=== PATIENT | female | born 1935 | race Caucasian/White ===

== ENCOUNTER 2017-02-23 18:44 | Inpatient (IN) | payer MEDICARE, OTHER ==
[~2017-02-23] VITALS: Ht 170.2 cm; Wt 80.5 kg
[~2017-02-23 18:44] MED LIST: CROM26SP5 NAS; EZET10TA18 PO; HYDR-3240 PO; IBUP200C75 PO; IPRA12.9 INH; LEVO50TA5 PO; LISI-170 PO; METF10002 PO; METF500T4 PO; TRAV5DRO EACHEYE
[2017-02-23] MEDS ORDERED: SODIUM CHLORIDE FLUSH 10ML SYR IVF ONE (19:30)
[2017-02-23] MEDS ORDERED: SODIUM CHLORIDE 0.9% 1,000ML IVBOLUS ONE (19:30)
[2017-02-23 19:59] LABS: HEMATOCRIT 32.4 % (34.6-47.8); HEMOGLOBIN 10.9 g/dL (11.7-16.4); WHITE BLOOD COUNT 7.4 x10^3/uL (3.4-10)
[2017-02-23 20:11] LABS: BLOOD UREA NITROGEN 32 mg/dL (7-18)
[2017-02-23 20:18] LABS: ASPARTATE AMINO TRANSFERASE 16 U/L (15-37); IS PT STATUS REG ER OR PRE ER? YES
[2017-02-23] MEDS ORDERED: LEVE250T28 PO (21:20)
[2017-02-23] MEDS ORDERED: morphine SULFATE 10 MG/ML, 1ML IVPush PRN (21:30)
[2017-02-23] MEDS ORDERED: LABETALOL 5MG/ML, 20ML IVPush PRN (21:30)
[2017-02-23] MEDS ORDERED: ONDANSETRON ODT 4 MG PO PRN (21:30)
[2017-02-23] MEDS ORDERED: DOCUSATE 100 MG CAPSULE PO PRN (21:30)
[2017-02-23] MEDS ORDERED: ACETAMINOPHEN 325 MG TABLET PO PRN (21:30)
[2017-02-23] MEDS ORDERED: TRAVOPROST OPHTH 0.004%, 2.5ML EACHEYE SCH (22:00)
[2017-02-23 22:10] LABS: PATH.CAST-FLAG NOT PRESENT; SPERM-FLAG NOT PRESENT; SRC-FLAG NOT PRESENT; XTAL-FLAG NOT PRESENT; YLC-FLAG NOT PRESENT
[2017-02-23 23:14] VITALS: BP 158/80
[2017-02-24] VITALS (7 sets, daily range): BP systolic 93–182; BP diastolic 36–73
[2017-02-24] MEDS: LATANOPROST OPHTH 0.005%, 2.5ML EACHEYE SCH (00:44)
[2017-02-24] MEDS: LEVETIRACETAM 100 MG/ML ORAL SOL PO SCH ×3 (01:13→21:17)
[2017-02-24] MEDS ORDERED: LORazepam 2 MG/ML, 1ML ONE (02:25)
[2017-02-24] MEDS ORDERED: LORazepam 2 MG/ML, 1ML IVPush ONE ×2 (02:30)
[2017-02-24 02:54] LABS: IS PT STATUS REG ER OR PRE ER? NO
[2017-02-24 08:27] LABS: HEMATOCRIT 31.6 % (34.6-47.8); HEMOGLOBIN 10.2 g/dL (11.7-16.4); WHITE BLOOD COUNT 4.9 x10^3/uL (3.4-10)
[2017-02-24 08:31] LABS: BLOOD UREA NITROGEN 22 mg/dL (7-18)
[2017-02-24] MEDS: LISINOPRIL 20 MG TABLET PO SCH (08:37)
[2017-02-24] MEDS: EZETIMIBE 10 MG TABLET PO SCH (08:37)
[2017-02-24] MEDS: HEPARIN 5,000 UNITS/ML, 1ML SQ SCH ×3 (08:38→17:05)
[2017-02-24 08:43] LABS: IS PT STATUS REG ER OR PRE ER? NO
[2017-02-24] MEDS: INSULIN ASPART 100 UNITS/ML, PEN SQ-INSULIN SCH ×4 (08:46→21:19)
[2017-02-25 00:32] VITALS: BP 126/66
[2017-02-25] MEDS: HEPARIN 5,000 UNITS/ML, 1ML SQ SCH ×3 (02:07→16:35)
[2017-02-25 06:52] VITALS: BP_SYST 144; BP_SYST 147; BP_DIAS 65; BP_DIAS 70
[2017-02-25] MEDS ORDERED: LISINOPRIL 10 MG TABLET ONE (08:30)
[2017-02-25] MEDS: LEVETIRACETAM 100 MG/ML ORAL SOL PO SCH ×2 (08:36→20:47)
[2017-02-25] MEDS: INSULIN ASPART 100 UNITS/ML, PEN SQ-INSULIN SCH (08:36)
[2017-02-25] MEDS: EZETIMIBE 10 MG TABLET PO SCH (08:36)
[2017-02-25] MEDS: LISINOPRIL 20 MG TABLET PO SCH (08:37)
[2017-02-25 11:30] VITALS: BP 124/69
[2017-02-25 12:55] VITALS: BP 146/65
[2017-02-25 18:39] VITALS: BP 135/65
[2017-02-25] MEDS: LATANOPROST OPHTH 0.005%, 2.5ML EACHEYE SCH (20:47)
[2017-02-25] MEDS ORDERED: LABETALOL 5MG/ML, 20ML IVPush PRN (21:00)
[2017-02-25] MEDS ORDERED: morphine SULFATE 10 MG/ML, 1ML IVPush PRN (21:00)
[2017-02-25] MEDS ORDERED: ONDANSETRON ODT 4 MG PO PRN (21:00)
[2017-02-25] MEDS ORDERED: DOCUSATE 100 MG CAPSULE PO PRN (21:00)
[2017-02-26 01:30] VITALS: BP 134/74
[2017-02-26] MEDS: HEPARIN 5,000 UNITS/ML, 1ML SQ SCH ×2 (01:38→08:52)
[2017-02-26 06:29] LABS: BLOOD UREA NITROGEN 25 mg/dL (7-18)
[2017-02-26 07:25] VITALS: BP 135/69
[2017-02-26] MEDS: LEVETIRACETAM 100 MG/ML ORAL SOL PO SCH (08:51)
[2017-02-26] MEDS: LISINOPRIL 20 MG TABLET PO SCH (08:52)
[2017-02-26] MEDS: EZETIMIBE 10 MG TABLET PO SCH (08:52)
[2017-02-26] MEDS ORDERED: LEVE500T8 PO (12:17)
[2017-02-26 12:40] VITALS: BP 118/65
[2017-02-26] MEDS ORDERED: LEVETIRACETAM 100 MG/ML ORAL SOL PO SCH (21:00)
== END 2017-02-26 15:38 | disposition home or self-care (01) | DRG 100 ==
LOC: ED 21:07 → EDIP 21:39 → 5SO 22:49 → 4EST 02-25 11:19
PROVIDERS: ADMIT Family Medicine; ATTEND Family Medicine
DX: G40.409 Other generalized epilepsy and epileptic syndromes, not intractable, without status epilepticus (principal); N17.0 Acute kidney failure with tubular necrosis; D64.9 Anemia, unspecified; E11.22 Type 2 diabetes mellitus with diabetic chronic kidney disease; I48.91 Unspecified atrial fibrillation; E11.39 Type 2 diabetes mellitus with other diabetic ophthalmic complication; G90.9 Disorder of the autonomic nervous system, unspecified; G43.109 Migraine with aura, not intractable, without status migrainosus; E03.9 Hypothyroidism, unspecified; E78.5 Hyperlipidemia, unspecified; F41.9 Anxiety disorder, unspecified; H40.9 Unspecified glaucoma; I12.9 Hypertensive chronic kidney disease with stage 1 through stage 4 chronic kidney disease, or unspecified chronic kidney disease; I08.0 Rheumatic disorders of both mitral and aortic valves; I44.7 Left bundle-branch block, unspecified; N18.3 Chronic kidney disease, stage 3 (moderate); Z79.899 Other long term (current) drug therapy; Z82.0 Family history of epilepsy and other diseases of the nervous system; Z82.3 Family history of stroke; I69.920 Aphasia following unspecified cerebrovascular disease; Z87.891 Personal history of nicotine dependence; Z95.0 Presence of cardiac pacemaker; Z95.3 Presence of xenogenic heart valve; Z66 Do not resuscitate
CPT/HCPCS: 36415; 70450; 71020; 78582; 80048; 80053; 80061; 80177; 81001; 82962; 83735; 83880; 84439; 84443; 84484; 85025; 85610; 87086; 93005; 93306; 95812; 95816; 96360; J1644; J1815; A9540; A9558; C9898; J2060; J7030